=== PATIENT | female | born 1980 | race Caucasian/White ===

== ENCOUNTER 2016-04-02 18:44 | Emergency (ER) | payer OTHER ==
[~2016-04-02] VITALS: Ht 167.6 cm; Wt 106.8 kg
[~2016-04-02 18:44] MED LIST: ZOFRAN ODT4 MG PO
[2016-04-02 20:12] LABS: HEMATOCRIT 39.3 % (36.0-46.0); MCH 27.9 PG (29.0-34.0); MCHC 33.8 G/DL (30.0-36.0); MCV 82.4 FL (83-99); MEAN PLAT.VOLUME 9.6 uM^3 (9.5-12.4); PLATELET COUNT 323 K/uL (156-360); RBC DIS.WIDTH-CV 13.4 % (11.8-14.6); RBC DIS.WIDTH-SD 39.2 % (39-53); RED BLOOD COUNT 4.77 M/uL (3.80-5.20); WHITE BLOOD COUNT 12.5 K/uL (4.1-10.2)
[2016-04-02 20:18] LABS: CHLORIDE 109 mEq/L (99-109); POTASSIUM 3.8 mEq/L (3.7-5.4); SODIUM 139 mEq/L (136-147)
[2016-04-02 20:20] LABS: GLUCOSE 101 mg/dL (70-99)
[2016-04-02 20:21] LABS: ANION GAP 12 MEQ/L (2-14)
[2016-04-02 20:23] LABS: GFR ESTIMATE (CALCULATED) > 59 mL/min/
[2016-04-02 20:24] LABS: UREA NITROGEN (BUN) 13 mg/dL (9-23)
[2016-04-02 22:36] LABS: CARBON DIOXIDE (BICARBONATE) 25.2 MEQ/L (20-31)
[2016-04-02 22:48] LABS: D-DIMER ELISA 0.27 mg/L FEU (< 0.57); TROP-I INTERPRETATION NEGATIVE; TROPONIN-I < 0.01 ng/mL (0.0-0.30)
[2016-04-02] MEDS ORDERED: PERCOCET 5/31 TABLET PO (23:33)
[2016-04-03 00:33] VITALS: BP 103/80
== END 2016-04-03 01:18 | disposition home or self-care (01) ==
LOC: EME 18:44
PROVIDERS: Emergency Medicine
DX: R07.9 Chest pain, unspecified (principal); R06.00 Dyspnea, unspecified; E11.9 Type 2 diabetes mellitus without complications; E03.9 Hypothyroidism, unspecified; Z86.711 Personal history of pulmonary embolism; Z86.718 Personal history of other venous thrombosis and embolism
CPT/HCPCS: 71020; 80048; 82803; 84439; 84443; 84484; 85027; 85379; 93005; 99281; 99285; J1885; J2405; J3010; J7030